=== PATIENT | female | born 1950 | race Caucasian/White ===

== ENCOUNTER 2019-02-17 08:13 | Day surgery (SDC) | payer OTHER ==
[2019-02-17] MEDS ORDERED: Ringers Lactate 0 ML IV ONE (08:54)
[2019-02-17] MEDS ORDERED: CEFAZOLIN/SWI 1gm 0 GM/0 ML SYR ONE (08:54)
[2019-02-17 09:47] VITALS: BP 143/72; TEMP 97.9; O2SAT 100
== END 2019-02-17 09:15 | disposition home or self-care (01) ==
LOC: OR 08:13
PROVIDERS: ATTEND Specialist
DX: L90.5 Scar conditions and fibrosis of skin (principal); L98.7 Excessive and redundant skin and subcutaneous tissue; D17.9 Benign lipomatous neoplasm, unspecified; Z53.9 Procedure and treatment not carried out, unspecified reason
CPT/HCPCS: J0690